=== PATIENT | female | born 1935 | race Two or more races ===

== ENCOUNTER 2023-02-13 12:42 | Emergency (ER) | payer BC, OTHER ==
[~2023-02-13] VITALS: Ht 162.6 cm; Wt 71.0 kg
[2023-02-13 15:13] VITALS: BP 144/69; PULSE 77; RESP 17; TEMP 98.1; O2SAT 97
== END 2023-02-13 15:43 | disposition home or self-care (01) ==
LOC: ER 12:42
DX: I10 Essential (primary) hypertension (principal); R51.9 Headache, unspecified

== ENCOUNTER 2023-03-15 11:45 | Emergency (ER) | payer BC, OTHER ==
[~2023-03-15] VITALS: Ht 162.6 cm; Wt 74.1 kg
[~2023-03-15 11:45] MED LIST: DIPH25CA66 PO
[2023-03-15 13:35] VITALS: BP 144/78; PULSE 70; RESP 15; TEMP 97.8; O2SAT 96
[2023-03-15] MEDS ORDERED: PROM1SOL4 PO (14:27)
[2023-03-15] MEDS ORDERED: ALBU108A5 IN (14:27)
[2023-03-15] MEDS ORDERED: LEVO500T91 PO (14:27)
== END 2023-03-15 14:33 | disposition home or self-care (01) ==
LOC: ER 11:45
DX: J20.9 Acute bronchitis, unspecified (principal); I10 Essential (primary) hypertension; Z86.73 Personal history of transient ischemic attack (TIA), and cerebral infarction without residual deficits
CPT/HCPCS: 71046

== ENCOUNTER 2023-08-28 11:23 | Emergency (ER) | payer OTHER ==
[~2023-08-28] VITALS: Ht 162.6 cm; Wt 78.9 kg
[~2023-08-28 11:23] MED LIST changes: +ALBU108A5 IN; +LEVO500T91 PO; +PROM1SOL4 PO
[2023-08-28 12:35] LABS: Basophils # (auto) 0 10 ^3/uL (0-0.2); Basophils % (auto) 0.7 % (0.0-2.0); Eosinophils # (auto) 0.1 10 ^3/uL (0-0.8); Eosinophils % (auto) 0.9 % (0.0-7.0); Hematocrit 40.3 % (36.0-46.0); Hemoglobin 13.2 g/dL (12.2-16.2); Lymphocytes # (auto) 2.2 10 ^3/uL (0.4-5.4); Lymphocytes % (auto) 32.1 % (10.0-50.0); Mean Corpuscular Hemoglobin 27.3 pg (28.0-32.0); Mean Corpuscular Hgb Conc. 32.9 g/dL (32.0-36.0); Monocytes # (auto) 0.5 10 ^3/uL (0-1.3); Monocytes % (auto) 7.5 % (0.0-12.0); Neutrophils % (auto) 58.8 % (37.0-80.0); Nucleated Red Blood Cells % 0.3 %; Red Blood Cells 4.86 10^6/uL (4.0-5.20); Red Cell Distribution Width 16.9 % (11.8-14.3); White Blood Cell 6.7 10^3/uL (4.4-10.8)
[2023-08-28 12:44] LABS: Alanine Aminotransferase 21 U/L (7-40); Albumin 4.2 g/dL (3.2-4.8); Alkaline Phosphatase 112 U/L (46-116); Anion Gap 5 (5-15); Aspartate Aminotransferase 22 U/L (13-40); BUN/Creatinine Ratio 16.4 (10.0-20.0); Bilirubin, Total 0.5 mg/dL (0.2-1.0); Blood Urea Nitrogen 18 mg/dL (9-23); Calcium 9.7 mg/dL (8.5-10.1); Carbon Dioxide 25 mmol/L (20-30); Chloride 110 mmol/L (98-107); Glucose 106 mg/dL (74-106); Potassium 4.1 mmol/L (3.5-5.1); Sodium 140 mmol/L (136-145); Total Protein 6.9 g/dL (5.7-8.2)
[2023-08-28 14:00] LABS: Urine Bacteria FEW /hpf (None Seen); Urine Blood Negative /uL (Negative); Urine Clarity Clear (Clear); Urine Color Light-Yellow (Yellow); Urine Mucus FEW (None Seen); Urine Protein, UAD Negative (Negative); Urine Urobilinogen Normal (Negative); Urine WBC <1 /hpf (0 - 5); Urine pH 5.5 (5.0-9.0)
[2023-08-28] MEDS ORDERED: BACL20TA PO (15:04)
[2023-08-28 15:11] VITALS: BP 144/71; PULSE 66; RESP 18; TEMP 98; O2SAT 98
== END 2023-08-28 15:15 | disposition home or self-care (01) ==
LOC: ER 11:23
DX: M62.838 Other muscle spasm (principal); I10 Essential (primary) hypertension; Z86.73 Personal history of transient ischemic attack (TIA), and cerebral infarction without residual deficits; Z90.89 Acquired absence of other organs
CPT/HCPCS: 36415; 80053; 81001; 85025